=== PATIENT | female | born 1965 | race African-American/Black ===

== ENCOUNTER 2025-06-15 13:56 | Emergency (ER) | payer SELFPAY ==
[~2025-06-15] VITALS: Ht 157.5 cm; Wt 58.0 kg
[2025-06-15 14:02] VITALS: O2SAT 99
[2025-06-15 14:32] LABS: BASOPHILS % 0.9 % (0.0-2.0); EOSINOPHILS % 0.3 % (0.0-5.0); HEMATOCRIT. 41.3 % (36.0-48.0); HEMOGLOBIN. 14.1 g/dL (12.0-16.0); LYMPHOCYTES % 17.6 % (20.0-50.0); MEAN PLATELET VOLUME 7.0 fl (7.4-10.4); MONOCYTES % 6.9 % (2.0-8.0); NEUTROPHILS % 74.3 % (40.0-76.0); PLATELET 259 x1000/uL (130-400); RED BLOOD CELL COUNT 4.25 mill/uL (4.2-5.4); RED CELL DISTRIBUTION WIDTH 12.6 % (11.6-14.6)
[2025-06-15 14:45] LABS: CLARITY URINE CLEAR (CLEAR); COLOR URINE YELLOW (YELLOW); GLUCOSE URINE NEGATIVE (NEGATIVE); KETONES URINE NEGATIVE (NEGATIVE); LEUKOCYTE ESTERASE URINE 2+ (NEGATIVE); NITRITE URINE NEGATIVE (NEGATIVE); OCCULT BLOOD URINE 2+ (NEGATIVE); PH URINE 7.0 (4.5-8.0); PROTEIN URINE NEGATIVE (NEGATIVE); SPECIFIC GRAVITY URINE 1.005 (1.005-1.030); UROBILINOGEN URINE 0.2 E.U./dL (0.2-1.0)
[2025-06-15 14:58] LABS: CREATININE 0.9 mg/dL (0.6-1.0); UREA NITROGEN BLOOD 10 mg/dL (9-23)
[2025-06-15 15:00] LABS: ASPARTATE AMINOTRANSFERASE 33 IU/L (<34)
[2025-06-15 15:01] LABS: BILIRUBIN DIRECT 0.2 mg/dL (<=3.0); BILIRUBIN TOTAL 0.6 mg/dL (0.1-1.0); PROTEIN TOTAL 7.5 g/dL (6.0-8.3)
[2025-06-15 15:21] LABS: WBC URINE 0-2 /hpf (0-2)
[2025-06-15 15:22] LABS: BACTERIA URINE NONE SEEN; SQUAMOUS EPITHELIAL CELL URINE FEW /lpf (RARE/1+)
[2025-06-15] MEDS ORDERED: NAPR-679 MT (15:55)
[2025-06-15] MEDS: KETOROLAC 15MG/ML VIAL IM ONE (16:26)
[2025-06-15 16:56] VITALS: BP 176/93; PULSE 77; RESP 15; TEMP 36.7; O2SAT 98
== END 2025-06-15 17:02 | disposition home or self-care (01) ==
LOC: ER 13:56
DX: R10.9 Unspecified abdominal pain (principal); R19.7 Diarrhea, unspecified
CPT/HCPCS: 99285; 74176; 80076; 80048; 81003; 83690; 85025; 36415; 93005; 96372; J1885